=== PATIENT | male | born 1980 ===

== ENCOUNTER 2020-05-08 14:50 | Inpatient (IN) ==
[2020-05-08] MEDS ORDERED: Al Hydrox/Mg Hydrox/Simet LIQ 30 ML UDC PO PRN (16:51)
[2020-05-08] MEDS ORDERED: Thiamine 100 MG/ML 2 ml VIAL (200 mg) IM ONE (16:53)
[2020-05-08] MEDS ORDERED: Lorazepam PYXIS KEY PRN (16:55)
[2020-05-08] MEDS ORDERED: LORazepam 2 mg VIAL 1 ml IV PUSH SCH (17:00)
[2020-05-08] MEDS: Enoxaparin 40 MG/0.4 ML SYR SUBCUT SCH (20:53)
[2020-05-08] MEDS: Mometasone/Formoter 200/5 MDI INH SCH (20:56)
[2020-05-09 07:42] LABS: Albumin 3.9 g/dL (3.2-5.2); Albumin/Globulin Ratio 1.3 (1-3); Calcium 9.6 mg/dL (8.6-10.3); EGFR African American 130.2 (>60); EGFR Non-African American 107.6 (>60); Potassium 3.8 mmol/L (3.5-5.0); Total Bilirubin 0.5 mg/dL (0.2-1.0); Total Protein 6.9 g/dL (6.4-8.9)
[2020-05-09 07:45] LABS: ABS Lymphocytes 1.6 10^3/ul (1.0-4.8); ABS Monocytes 0.5 10^3/ul (0-0.8); ABS Neutrophils 8.6 10^3/ul (1.5-7.7); Hematocrit 39 % (42-52); Hemoglobin 13.6 g/dL (14.0-18.0); Lymphocyte % 15.1 %; Mean Corpuscular HGB Conc 35 g/dL (31-36); Mean Corpuscular Hemoglobin 33 pg (27-31); Mean Corpuscular Volume 96 fL (80-94); Mean Platelet Volume 7.6 fL (7.4-10.4); Nucleated Red Blood Cells % 0.1; Platelet Count 211 10^3/uL (150-450); Red Blood Count 4.08 10^6 /uL (4.18-5.48); Red Cell Distribution Width 14 % (10-15); White Blood Count 10.8 10^3/uL (3.5-10.8)
[2020-05-09] MEDS: Mometasone/Formoter 200/5 MDI INH SCH (07:51)
[2020-05-09 07:53] LABS: INR 1.08 (0.82-1.09)
[2020-05-09] MEDS ORDERED: Remdesivir 100 mg Vial 100 MG in NS 0.9% 250 ml 230 ML IV SCH (09:00)
[2020-05-09] MEDS ORDERED: Iohexol 350 (CONTRAST) 500 ML MDV IV ONE (10:16)
[2020-05-09] MEDS: Enoxaparin 40 MG/0.4 ML SYR SUBCUT SCH ×2 (11:12→22:24)
[2020-05-09] MEDS: Multivitamins/Minerals TAB PO SCH (11:13)
[2020-05-09 14:16] LABS: C Reactive Protein 1.28 mg/L (<8.01)
[2020-05-09] MEDS: Albuterol HFA INHALER 8 gm MDI INH PRN (14:53)
[2020-05-09] MEDS: Albuterol/Ipratropium NEB.SOL (2.5/0.5 MG) 3 ML NEB.SOLN INH SCH ×2 (14:54→19:40)
[2020-05-09] MEDS ORDERED: methylPREDNISolone SOD 40 mg/ml 1 ml VIAL IV SCH (15:00)
[2020-05-10] MEDS: Mometasone/Formoter 200/5 MDI INH SCH ×3 (04:38→19:37)
[2020-05-10 06:43] LABS: ABS Lymphocytes 1.6 10^3/ul (1.0-4.8); ABS Monocytes 0.4 10^3/ul (0-0.8); Hematocrit 42 % (42-52); Hemoglobin 14.7 g/dL (14.0-18.0); Lymphocyte % 17.6 %; Mean Corpuscular HGB Conc 36 g/dL (31-36); Mean Corpuscular Hemoglobin 34 pg (27-31); Mean Corpuscular Volume 96 fL (80-94); Mean Platelet Volume 7.5 fL (7.4-10.4); Platelet Count 194 10^3/uL (150-450); Red Blood Count 4.34 10^6 /uL (4.18-5.48); Red Cell Distribution Width 15 % (10-15); White Blood Count 8.9 10^3/uL (3.5-10.8)
[2020-05-10 07:04] LABS: Albumin 4.1 g/dL (3.2-5.2); Albumin/Globulin Ratio 1.3 (1-3); Calcium 9.7 mg/dL (8.6-10.3); EGFR African American 140.3 (>60); EGFR Non-African American 115.9 (>60); Globulin 3.2 g/dL (2-4); Total Bilirubin 0.6 mg/dL (0.2-1.0); Total Protein 7.3 g/dL (6.4-8.9)
[2020-05-10] MEDS: Albuterol HFA INHALER 8 gm MDI INH PRN (08:49)
[2020-05-10] MEDS ORDERED: methylPREDNISolone SOD 40 mg/ml 1 ml VIAL IV SCH (09:00)
[2020-05-10] MEDS: Enoxaparin 40 MG/0.4 ML SYR SUBCUT SCH (09:05)
[2020-05-10] MEDS: Multivitamins/Minerals TAB PO SCH (09:06)
[2020-05-10 11:05] LABS: Hepatitis C Antibody Reactive (Negative)
[2020-05-10] MEDS ORDERED: Triamcinolone 0.025% OINT 15 GM TUBE TOPICAL SCH (13:42)
== END 2020-05-10 19:00 | disposition home or self-care (01) | DRG 141 ==
LOC: MED 15:08
PROVIDERS: ADMIT Internal Medicine; ATTEND Internal Medicine